=== PATIENT | female | born 1955 ===

== ENCOUNTER 2017-01-07 11:37 | Emergency (ER) | payer OTHER ==
[2017-01-07 11:37] VITALS: BMI 25.2
[2017-01-07 11:54] VITALS: BP 133/77; PULSE 69; RESP 16; TEMP 97.7; O2SAT 98
--- NOTE | 2017-01-07 12:50 | C.PDOC ---
History Of Present Illness 61 yr old female presents to the ER with complaints of left sided neck pain since waking up today. Patient reports the pain is worsened with movement of the neck. Describes the pain as sharp and states the pain shoots down the back when she moves. Patient denies trauma, chest pain, SOB, weakness or numbness. Time Seen by Provider: 01/07/17 11:55 Chief Complaint (Nursing): Back Pain History Per: Patient History/Exam Limitations: no limitations Onset/Duration Of Symptoms: Sudden Onset (Since morning) Past Medical History Reviewed: Historical Data, Nursing Documentation, Vital Signs Vital Signs: Last Vital Signs Temp 97.7 F 01/07/17 11:49 Pulse 69 01/07/17 11:49 Resp 16 01/07/17 11:49 BP 133/77 01/07/17 11:49 Pulse Ox 98 01/07/17 13:22 - Medical History PMH: Migraine Family History: States: No Known Family Hx - Social History Hx Alcohol Use: No Hx Substance Use: No - Immunization History Hx Tetanus Toxoid Vaccination: No Hx Influenza Vaccination: No Hx Pneumococcal Vaccination: No Review Of Systems Except As Marked, All Systems Reviewed And Found Negative. Cardiovascular: Negative for: Chest Pain Respiratory: Negative for: Shortness of Breath Musculoskeletal: Positive for: Neck Pain (Left sided ) Neurological: Negative for: Weakness, Numbness Physical Exam - Physical Exam Appears: Non-toxic, No Acute Distress Skin: Warm, Dry Head: Atraumatic, Normacephalic Oral Mucosa: Moist Neck: Paracervical Tenderness, Supple, Other ((+) Muscle spasm to the left trapezius muscle. Pain with movement of the neck to the right side.) Chest: Symmetrical, No Tenderness Cardiovascular: Rhythm Regular, No Murmur Respiratory: Normal Breath Sounds, No Rales, No Rhonchi, No Stridor, No Wheezing Extremity: Normal ROM, No Swelling Neurological/Psych: Oriented x3, Normal Speech, Normal Motor ED Course And Treatment O2 Sat by Pulse Oximetry: 98 (RA ) Pulse Ox Interpretation: Normal Medical Decision Making Medical Decision Making: PLAN: * Valium PO * Toradol IM On re-exam, the patient reports improvement of symptoms. Lungs are CTA, heart is RRR, Ambulatory in the ED with steady gait. Disposition - Disposition Referrals: Joey Marie MD [Medical Doctor] - Disposition: HOME/ ROUTINE Disposition Time: 12:50 Condition: GOOD Additional Instructions: Follow up with the medical doctor within 1-2 days. Return if worsened. Prescriptions: Cyclobenzaprine [Flexeril] 5 mg PO TID #21 tab Naproxen [Naprosyn] 500 mg PO BID #20 tab Instructions: Cervical Strain (GEN) Forms: [employer] (Greek) - Clinical Impression Clinical Impression: Torticollis - PA / SURVEY ANALYST / Resident Statement MD/DO has reviewed & agrees with the documentation as recorded. - Scribe Statement The provider has reviewed the documentation as recorded by the Scribe Filomena Grubbs All medical record entries made by the Mike were at my direction and personally dictated by me. I have reviewed the chart and agree that the record accurately reflects my personal performance of the history, physical exam, medical decision making, and the department course for this patient. I have also personally directed, reviewed, and agree with the discharge instructions and disposition.
== END 2017-01-07 13:00 | disposition home or self-care (01) ==
LOC: C.ER 11:37
DX: M43.6 Torticollis (principal)
CPT/HCPCS: 96372; 99283; J1885